=== PATIENT | female | born 1955 | race Caucasian/White ===

== ENCOUNTER → 2016-08-18 | Outpatient (CLI) | payer BC ==
[2016-08-18 10:14] LABS: Basophils % (A) 1 %; CH 31.9; CHCM 34.6; Eosinophils # (A) 0.2 k/uL (0-0.7); Eosinophils % (A) 3 %; HCT 42.5 % (34.0-46.0); HDW 3.02; HGB 14.2 gm/dL (11.4-16.0); Luc # (Auto) 0.14; Luc % (Auto) 3; Lymphocytes # (A) 1.5 k/uL (1.0-4.8); Lymphocytes % (A) 27 %; MCHC 33.4 g/dL (31.0-37.0); MCV 92.7 fL (80.0-100.0); Mean Platelet Volume 6.6; Monocytes # (A) 0.4 k/uL (0-1.0); Monocytes % (A) 7 %; Neutrophils # (A) 3.3 k/uL (1.3-7.7); Neutrophils % (A) 60 %; RBC 4.58 m/uL (3.80-5.40); RDW 13.8 % (11.5-15.5); WBC 5.5 k/uL (3.8-10.6); WBC (Perox) 5.45
[2016-08-18 10:21] LABS: ALT 59 U/L (9-52); AST 40 U/L (14-36); Alkaline Phosphatase 116 U/L (38-126); Anion Gap 9 mmol/L; Blood Urea Nitrogen 21 mg/dL (7-17); Calcium 9.6 mg/dL (8.4-10.2); Carbon Dioxide 28 mmol/L (22-30); Chloride 106 mmol/L (98-107); Cholesterol 189 mg/dL (<200); Glucose 103 mg/dL (74-99); HDL Cholesterol 84 mg/dL (40-60); Non-African American GFR(MDRD) >60 (>60 ml/min/1.73 sqM); Potassium 4.5 mmol/L (3.5-5.1); Sodium 143 mmol/L (137-145); Total Bilirubin 0.7 mg/dL (0.2-1.3); Total Protein 7.4 g/dL (6.3-8.2); Triglycerides 142 mg/dL (<150)
== END | disposition home or self-care (01) ==
LOC: LABWHC1 09:30
PROVIDERS: ATTEND Family Medicine
DX: E78.5 Hyperlipidemia, unspecified (principal)
CPT/HCPCS: 36415; 80053; 80061; 85025

== ENCOUNTER → 2016-10-19 | Outpatient (CLI) | payer BC ==
[2016-10-19 08:37] LABS: ALT 47 U/L (9-52); AST 39 U/L (14-36); Glucose 108 mg/dL (74-99)
[2016-10-19 10:55] LABS: Hemoglobin A1C 5.5 % (4.2-6.1)
--- NOTE | 2016-10-20 13:48 | MM ---
Reason for exam: screening (asymptomatic). Last mammogram was performed 4 years and 1 month ago. History: Patient is postmenopausal. Took hormonal contraceptives for 15 years beginning at age 20. Physical Findings: A clinical breast exam by your physician is recommended on an annual basis and results should be correlated with mammographic findings. MG Screening Mammo w CAD Bilateral CC and MLO view(s) were taken. Prior study comparison: September 27, 2012, bilateral digital screening mammo w/CAD. December 17, 2010, bilateral digital screening mammo w/CAD. The breast tissue is heterogeneously dense. This may lower the sensitivity of mammography. Finding: There are typically benign punctate, diffuse/scattered calcifications. No significant changes in finding since September 27, 2012 and December 17, 2010. ASSESSMENT: Benign, BI-RAD 2 RECOMMENDATION: Routine screening mammogram of both breasts in 1 year.
== END | disposition home or self-care (01) ==
LOC: RADMAMWWP 07:48
PROVIDERS: ATTEND Family Medicine
DX: Z12.31 Encounter for screening mammogram for malignant neoplasm of breast (principal); R74.8 Abnormal levels of other serum enzymes; R73.01 Impaired fasting glucose
CPT/HCPCS: 83036; 82947; 84450; 84460; 36415; G0202

== ENCOUNTER → 2018-05-28 | Outpatient (CLI) | payer BC ==
[2018-05-28 19:43] LABS: Hemoglobin A1C 5.7 % (4.0-6.0)
== END ==
LOC: LABWHC1 09:32
PROVIDERS: ATTEND Family Medicine
DX: E78.5 Hyperlipidemia, unspecified (principal); E66.9 Obesity, unspecified
CPT/HCPCS: 36415; 80061; 83036; 84443; 84450

== ENCOUNTER → 2019-07-20 | Outpatient (CLI) | payer BC ==
[2019-07-20 10:58] LABS: Basophils % (A) 1 %; Eosinophils # (A) 0.2 k/uL (0-0.7); Eosinophils % (A) 4 %; HCT 42.9 % (34.0-46.0); HGB 14.5 gm/dL (11.4-16.0); Lymphocytes # (A) 1.6 k/uL (1.0-4.8); Lymphocytes % (A) 33 %; MCH 30.3 pg (25.0-35.0); MCHC 33.7 g/dL (31.0-37.0); MCV 89.9 fL (80.0-100.0); Mean Platelet Volume 7.3; Monocytes # (A) 0.3 k/uL (0-1.0); Monocytes % (A) 5 %; Neutrophils # (A) 2.6 k/uL (1.3-7.7); Neutrophils % (A) 55 %; Platelet Count 255 k/uL (150-450); RBC 4.78 m/uL (3.80-5.40); RDW 13.1 % (11.5-15.5); WBC 4.8 k/uL (3.8-10.6)
[2019-07-20 15:34] LABS: African American GFR (CKD) 92.2 (60.0-200.0); Anion Gap 8.7 mmol/L (4.00-12.00); BUN/Creat Ratio 21.25 Ratio (12.00-20.00); Calcium 9.3 mg/dL (8.7-10.3); Carbon Dioxide 27.3 mmol/L (21.6-31.8); Chol/HDL Ratio 2.77; Non-African American GFR(CKD) 79.6 (60.0-200.0); Potassium 4.1 mmol/L (3.5-5.5)
[2019-07-20 16:46] LABS: Hemoglobin A1C 5.7 % (4.0-6.0)
== END | disposition home or self-care (01) ==
LOC: LABWHC1 10:01
PROVIDERS: ATTEND Family Medicine
DX: E78.5 Hyperlipidemia, unspecified (principal); E66.9 Obesity, unspecified
CPT/HCPCS: 36415; 80048; 80061; 83036; 84443; 84450; 85025

== ENCOUNTER → 2019-09-11 | Outpatient (CLI) | payer BC ==
--- NOTE | 2019-09-12 11:20 | MM ---
Reason for exam: screening (asymptomatic). Last mammogram was performed 2 years and 11 months ago. History: Patient is postmenopausal. Took hormonal contraceptives for 15 years beginning at age 20. Physical Findings: A clinical breast exam by your physician is recommended on an annual basis and results should be correlated with mammographic findings. MG Screening Mammo w CAD Bilateral CC and MLO view(s) were taken. Prior study comparison: October 19, 2016, bilateral MG screening mammo w CAD. September 27, 2012, bilateral digital screening mammo w/CAD. The breast tissue is heterogeneously dense. This may lower the sensitivity of mammography. Finding: There are typically benign round, linear calcifications in both breasts. There is no discrete abnormality. New finding and increase in number of calcifications since October 19, 2016 and September 27, 2012. ASSESSMENT: Benign, BI-RAD 2 RECOMMENDATION: Routine screening mammogram of both breasts in 1 year.
== END | disposition home or self-care (01) ==
LOC: RADMAMWWP 10:28
PROVIDERS: ATTEND Family Medicine
DX: Z12.31 Encounter for screening mammogram for malignant neoplasm of breast (principal)
CPT/HCPCS: 77067

== ENCOUNTER → 2020-09-12 | Outpatient (CLI) | payer BC ==
[2020-09-12 22:59] LABS: African American GFR (CKD) 79.4 (60.0-200.0); Anion Gap 12.5 mmol/L (4.00-12.00); BUN/Creat Ratio 23.33 Ratio (12.00-20.00); Calcium 9.8 mg/dL (8.7-10.3); Carbon Dioxide 25.5 mmol/L (21.6-31.8); Non-African American GFR(CKD) 68.5 (60.0-200.0); Potassium 4.4 mmol/L (3.5-5.5)
[2020-09-12 23:07] LABS: T4, Free (Free Thyroxine) 1.3 ng/dL (0.80-1.80)
[2020-09-13 06:48] LABS: Chol/HDL Ratio 2.42
== END | disposition home or self-care (01) ==
LOC: LABWHC1 12:43
PROVIDERS: ATTEND Family Medicine
DX: E78.5 Hyperlipidemia, unspecified (principal); E66.9 Obesity, unspecified
CPT/HCPCS: 36415; 80048; 80061; 84439; 84443; 84450

== ENCOUNTER → 2021-06-19 | Outpatient (CLI) | payer BC ==
--- NOTE | 2021-06-23 10:02 | MM ---
Reason for exam: screening (asymptomatic). Last mammogram was performed 1 year and 9 months ago. History: Patient is postmenopausal. Took hormonal contraceptives for 15 years beginning at age 20. Physical Findings: A clinical breast exam by your physician is recommended on an annual basis and results should be correlated with mammographic findings. MG 3D Screening Mammo W/Cad Bilateral CC and MLO view(s) were taken. Prior study comparison: September 11, 2019, bilateral MG screening mammo w CAD. October 19, 2016, bilateral MG screening mammo w CAD. The breast tissue is heterogeneously dense. This may lower the sensitivity of mammography. Benign secretory and oil cyst calcifications. No significant changes when compared with prior studies. ASSESSMENT: Benign, BI-RAD 2 RECOMMENDATION: Routine screening mammogram of both breasts in 1 year.
== END | disposition home or self-care (01) ==
LOC: RADMAMWWP 14:06
PROVIDERS: ATTEND Family Medicine
DX: Z12.31 Encounter for screening mammogram for malignant neoplasm of breast (principal); Z78.0 Asymptomatic menopausal state
CPT/HCPCS: 77063; 77067

== ENCOUNTER → 2022-02-07 | Outpatient (CLI) | payer BC ==
[2022-02-07 16:18] LABS: Basophils # (A) 0.04 X 10*3/uL (0.00-0.10); Basophils % (A) 0.7 %; Eosinophils # (A) 0.18 X 10*3/uL (0.04-0.35); Eosinophils % (A) 2.9 %; HCT 46.4 % (37.2-46.3); Immature Grans, Automated 0.8 %; Lymphocytes # (A) 1.95 X 10*3/uL (0.90-5.00); Lymphocytes % (A) 31.9 %; MCH 29.6 pg (27.0-32.0); MCHC 32.3 g/dL (32.0-37.0); MCV 91.7 fL (80.0-97.0); Mean Platelet Volume 10.4 fL (9.5-12.2); Monocytes # (A) 0.57 X 10*3/uL (0.20-1.00); Monocytes % (A) 9.3 %; NRBC Per 100 WBC 0 /100 WBCS (0.0-0.0); Neutrophils # (A) 3.32 X 10*3/uL (1.80-7.70); Neutrophils % (A) 54.4 %; Platelet Count 300 X 10*3/uL (140-440); RBC 5.06 X 10*6/uL (4.10-5.20); RDW 13.5 % (11.5-14.5); WBC 6.11 X 10*3/uL (4.50-10.00)
[2022-02-07 16:24] LABS: BUN/Creat Ratio 21.94 Ratio (12.00-20.00); Chol/HDL Ratio 2.29 Ratio; Globulin 2.8 g/dL (1.6-3.3); LDL Cholesterol,Calculated 76.7 mg/dL (0.0-131.0)
[2022-02-07 16:25] LABS: ALT 49 U/L (8-44); AST 46 U/L (13-35); African American GFR (CKD) 104.1 (60.0-200.0); Albumin 4.6 g/dL (3.8-4.9); Albumin/Globulin Ratio 1.64 (1.60-3.17); Alkaline Phosphatase 128 U/L (41-126); Blood Urea Nitrogen 15.6 mg/dL (9.0-27.0); Calcium 9.8 mg/dL (8.7-10.3); Carbon Dioxide 23.3 mmol/L (20.0-27.5); Chloride 103 mmol/L (96-109); Glucose 101 mg/dL (70-110); Non-African American GFR(CKD) 89.9 (60.0-200.0); Potassium 4.1 mmol/L (3.5-5.5); Sodium 139 mmol/L (135-145); Total Protein 7.4 g/dL (6.2-8.2)
== END | disposition home or self-care (01) ==
LOC: LABWHC1 11:23
PROVIDERS: ATTEND Family Medicine
DX: Z00.00 Encounter for general adult medical examination without abnormal findings (principal); E78.5 Hyperlipidemia, unspecified; E66.9 Obesity, unspecified
CPT/HCPCS: 36415; 80053; 80061; 82306; 84439; 84443; 85025

== ENCOUNTER → 2022-06-22 | Outpatient (CLI) | payer BC ==
--- NOTE | 2022-06-23 09:06 | MM ---
Reason for Exam: Screening (asymptomatic). Last screening mammogram was performed 12 month(s) ago. Patient History: Menarche at age 14. First Full-Term at age 29. Hysterectomy at age 53. Postmenopausal. Patient has history of breast feeding. Hormonal Contraceptives for 15 years from age 20 until age 37. Risk Values: Elena 5 year model risk: 1.8%. NCI Lifetime model risk: 7.2%. Prior Study Comparison: 05/14/1995 Screening Mammogram, Unknown. 05/07/2009 Bilateral Screening Mammogram, [facility]. 12/17/2010 Bilateral Screening Mammogram, [facility] 09/27/2012 Bilateral Screening Mammogram, [facility]. 10/19/2016 Bilateral Screening Mammogram, [facility]. 09/11/2019 Bilateral Screening Mammogram, [facility]. 06/19/2021 Bilateral Screening Mammogram, [facility]. Tissue Density: The breast tissue is heterogeneously dense. This may lower the sensitivity of mammography. Findings: Analyzed By CAD. There is no suspicious group of microcalcifications or new suspicious mass in either breast. Benign secretory and oil cyst calcifications bilaterally. No significant change from prior studies. Overall Assessment: Benign, BI-RAD 2 Management: Screening Mammogram of both breasts in 1 year. A clinical breast exam by your physician is recommended on an annual basis and results should be correlated with mammographic findings. Electronically signed and approved by: Ronald Carroll D.O.
== END | disposition home or self-care (01) ==
LOC: RADMAMWWP 13:52
PROVIDERS: ATTEND Family Medicine
DX: Z12.31 Encounter for screening mammogram for malignant neoplasm of breast (principal); Z78.0 Asymptomatic menopausal state
CPT/HCPCS: 77067

== ENCOUNTER 2022-06-30 08:09 | Day surgery (SDC) | payer BC ==
[2022-06-29 08:24] VITALS: BMI 39.0
[~2022-06-30 08:09] MED LIST: LACTATED RINGERS 1,000 ML IV SCH; LIDOCAINE 1% (10MG/ML) FOR IV START INTRADERMA PRN
[2022-06-30 08:36] VITALS: TEMP 98
[2022-06-30] MEDS ORDERED: LIDOCAINE 2% INJ 20 MG/ML (2 ML VIAL) ONE (08:59)
[2022-06-30] MEDS ORDERED: PROPOFOL 10 MG/ML 20 ML VIAL IV ONE (08:59)
--- NOTE | 2022-06-30 09:03 | P.GSHP ---
History of Present Illness H&P Date: 06/30/22 Chief Complaint: Colon cancer screening [id number] female here today for colonoscopy. Last colonoscopy 14 years ago. No bowel complaints. No family history of colon cancer. Past Medical History Past Medical History: GERD/Reflux, Hyperlipidemia, Hypertension, Skin Disorder Additional Past Medical History / Comment(s): hx of diverticulitis., hemorrhoids., states hernia above umbilicus., back and hip pain, psoriasis- receives steroid injections q 6 months. History of Any Multi-Drug Resistant Organisms: None Reported Past Surgical History: Hysterectomy, Tubal Ligation Additional Past Surgical History / Comment(s): colonoscopy, egd. Past Anesthesia/Blood Transfusion Reactions: No Reported Reaction Past Psychological History: No Psychological Hx Reported Smoking Status: Never smoker Past Alcohol Use History: Rare Past Drug Use History: None Reported - Past Family History Mother Family Medical History: No Reported History Medications and Allergies Home Medications Medication Instructions Recorded Confirmed Type Atorvastatin [Lipitor] 10 mg PO DAILY 06/29/22 06/30/22 History Cholecalciferol [Vitamin D3 (25 100 mcg PO DAILY 06/29/22 06/30/22 History Mcg = 1000 Iu)] Naproxen Sodium [Aleve] 220 mg PO DIRECTED PRN 06/29/22 06/30/22 History Pantoprazole [Protonix] 40 mg PO DAILY 06/29/22 06/30/22 History amLODIPine [Norvasc] 5 mg PO DAILY 06/29/22 06/30/22 History Allergies Allergy/AdvReac Type Severity Reaction Status Date / Time No Known Allergies Allergy Verified 06/30/22 08:36 Surgical - Exam Vital Signs Temp Pulse Resp BP Pulse Ox 98.0 F 71 16 160/70 97 06/30/22 08:35 06/30/22 08:35 06/30/22 08:35 06/30/22 08:35 06/30/22 08:35 Physical exam: General: Well-developed, well-nourished HEENT: Normocephalic, sclerae nonicteric Abdomen: Nontender, nondistended Extremities: No edema Neuro: Alert and oriented Assessment and Plan (1) Colon cancer screening Narrative/Plan: Will proceed with colonoscopy Current Visit: Yes Status: Acute Code(s): Z12.11 - ENCOUNTER FOR SCREENING FOR MALIGNANT NEOPLASM OF COLON SNOMED Code(s): 453319250
--- NOTE | 2022-06-30 09:19 | P.PCN ---
Date of Procedure: 06/30/22 Procedure(s) Performed: PREOPERATIVE DIAGNOSIS: Colon cancer screening POSTOPERATIVE DIAGNOSIS: Diverticulosis, small rectal polyp PROCEDURE: Colonoscopy with snare polypectomy ANESTHESIA: MAC SURGEON: Gaston Ortega M.D. SPECIMENS: Polyp ENDOSCOPIC PROCEDURE: The patient was placed on the endoscopy table in the left decubitus position. The Olympus colonoscope was inserted into the anus and passed under direct visualization to the base of the cecum. The appendiceal orifice was visualized. From that point the scope was slowly withdrawn inspecting all surfaces carefully. There were no neoplastic inflammatory or polypoid lesions throughout the cecum, ascending, transverse, descending, and sigmoid colon. In the distal rectum there was noted to be a small polyp that was removed using the snare with cautery technique. The patient had mild scattered diverticulosis. Digital rectal examination was normal. The patient was taken to the recovery room in stable condition per anesthesia guidelines. RECOMMENDATIONS: Await biopsy results.
[2022-06-30] MEDS ORDERED: IV FLUID CONTINUATION 600 ML IV ONE (09:25)
[2022-06-30 09:28] VITALS: RESP 18
[2022-06-30 09:42] VITALS: BP 110/55; PULSE 67
== END 2022-06-30 10:11 | disposition home or self-care (01) ==
LOC: ORWHC2ENDO 08:09
PROVIDERS: ATTEND Surgery
DX: Z12.11 Encounter for screening for malignant neoplasm of colon (principal); D12.8 Benign neoplasm of rectum; I10 Essential (primary) hypertension; E78.5 Hyperlipidemia, unspecified; K21.9 Gastro-esophageal reflux disease without esophagitis; Z87.19 Personal history of other diseases of the digestive system; Z98.51 Tubal ligation status; Z86.59 Personal history of other mental and behavioral disorders; Z79.899 Other long term (current) drug therapy
CPT/HCPCS: 88305; 45385; J2704; J2001

== ENCOUNTER → 2023-11-10 | Outpatient (CLI) | payer MEDICARE ==
--- NOTE | 2023-11-11 00:38 | MM ---
Reason for Exam: Screening (asymptomatic). Last mammogram was performed 1 year(s) and 5 month(s) ago. Patient History: Menarche at age 14. First Full-Term at age 29. Hysterectomy at age 53. Postmenopausal. Patient has history of breast feeding. Hormonal Contraceptives for 15 years from age 20 until age 37. Risk Values: Elena 5 year model risk: 1.9%. NCI Lifetime model risk: 6.7%. Prior Study Comparison: 09/11/2019 Bilateral Screening Mammogram, [facility]. 06/19/2021 Bilateral Screening Mammogram, [facility]. 06/22/2022 Bilateral MG screening mammo w CAD, [facility]. Tissue Density: The breasts are heterogeneously dense, which may obscure small masses. Findings: Analyzed By CAD. The pattern is symmetrical. Benign linear and spherical calcifications are present bilaterally. No suspicious groups of microcalcifications, spiculated or lobular masses, architectural distortion or other secondary signs of malignancy are mammographically apparent. Overall Assessment: Benign, BI-RAD 2 Management: Screening Mammogram of both breasts in 1 year. A negative mammogram report should not preclude additional follow up of suspicious palpable abnormalities. Patient should continue monthly self breast exam. A clinical breast exam by your physician is recommended on an annual basis and results should be correlated with mammographic findings. Electronically signed and approved by: Rogers Cobb D.O. Radiologis
== END | disposition home or self-care (01) ==
LOC: RADMAMWWP 13:34
PROVIDERS: ATTEND Family Medicine
DX: Z12.31 Encounter for screening mammogram for malignant neoplasm of breast (principal); Z78.0 Asymptomatic menopausal state
CPT/HCPCS: 77067

== ENCOUNTER → 2024-05-03 | Outpatient (CLI) | payer MEDICARE ==
[2024-05-03 15:11] LABS: Basophils # (A) 0.03 X 10*3/uL (0.00-0.10); Basophils % (A) 0.6 %; Eosinophils # (A) 0.15 X 10*3/uL (0.04-0.35); Eosinophils % (A) 3.1 %; HCT 43.3 % (37.2-46.3); HGB 14.5 g/dL (12.0-15.0); Lymphocytes # (A) 1.71 X 10*3/uL (0.90-5.00); MCH 30.4 pg (27.0-32.0); MCHC 33.5 g/dL (32.0-37.0); MCV 90.8 FL (80.0-97.0); Mean Platelet Volume 10.1 FL (9.5-12.2); Monocytes # (A) 0.48 X 10*3/uL (0.20-1.00); Monocytes % (A) 9.8 %; NRBC Per 100 WBC 0 X 10*3/uL (0.00-0.01); Neutrophils # (A) 2.51 X 10*3/uL (1.80-7.70); Neutrophils % (A) 51.3 %; Platelet Count 245 X 10*3/uL (140-440); RBC 4.77 X 10*6/uL (4.10-5.20); WBC 4.89 X 10*3/uL (4.50-10.00)
[2024-05-03 15:22] LABS: ALT 23 U/L (8-44); AST 30 U/L (13-35); Albumin 4.3 g/dL (3.8-4.9); Albumin/Globulin Ratio 1.79 Ratio (1.60-3.17); Alkaline Phosphatase 120 U/L (41-126); Blood Urea Nitrogen 18.2 mg/dL (9.0-27.0); Calcium 9.5 mg/dL (8.7-10.3); Carbon Dioxide 23.5 mmol/L (21.6-31.8); Chloride 103 mmol/L (96-109); Chol/HDL Ratio 2.31 Ratio; Globulin 2.4 g/dL (1.6-3.3); Glucose 99 mg/dL (70-110); LDL Cholesterol,Calculated 87.3 mg/dL (0.0-131.0); Potassium 4.5 mmol/L (3.5-5.5); Sodium 140 mmol/L (135-145); Total Bilirubin 0.7 mg/dL (0.3-1.2); Total Protein 6.7 g/dL (6.2-8.2); VLDL Calculation 19.86 mg/dL (5.00-40.00)
== END | disposition home or self-care (01) ==
LOC: LABWHC1 10:27
PROVIDERS: ATTEND Family Medicine
DX: I10 Essential (primary) hypertension (principal); L65.9 Nonscarring hair loss, unspecified
CPT/HCPCS: 36415; 80053; 80061; 84443; 85025; 86038

== ENCOUNTER → 2024-11-15 | Outpatient (CLI) | payer MEDICARE ==
--- NOTE | 2024-11-16 11:05 | CA ---
Transthoracic Echo Report Name: Samira Cummins Age: 69 Gender: F : 1955 Exam Date: 11/15/2024 16:50 Exam Location: [facility] Ht (in): 60 Wt (lb): 192 Ordering Physician: Rogers Hanson DO Attending/Referring Phys: Rogers Hanson DO [employer] Bita Stubbs RDCS Procedure CPT: Indications: R01.1 CARDIAC MURMUR, UNSPECIFIED Cardiac Hx: Technical Quality: Good Contrast 1: Total Dose (mL): Contrast 2: Total Dose (mL): MEASUREMENTS (Male / Female) Normal Values 2D ECHO LV Diastolic Diameter PLAX 3.8 cm 4.2 - 5.9 / 3.9 - 5.3 cm LV Systolic Diameter PLAX 2.7 cm IVS Diastolic Thickness 0.9 cm 0.6 - 1.0 / 0.6 - 0.9 cm LVPW Diastolic Thickness 1.1 cm 0.6 - 1.0 / 0.6 - 0.9 cm LV Relative Wall Thickness 0.5 RV Internal Dim ED PLAX 3.0 cm LA Systolic Diameter LX 3.0 cm 3.0 - 4.0 / 2.7 - 3.8 cm LV Diastolic Volume MOD 4C 74.2 cm??? LV Systolic Volume MOD 4C 33.7 cm??? LV Ejection Fraction MOD 4C 54.5 % LV Cardiac Index MOD 4C 1275.3 cm???/min???m??? LV Diastolic Length 4C 8.4 cm LV Systolic Length 4C 6.8 cm LV Diastolic Volume MOD 2C 63.0 cm??? LV Systolic Volume MOD 2C 25.2 cm??? LV Ejection Fraction MOD 2C 60.0 % LV Cardiac Index MOD 2C 1192.0 cm???/min???m??? LV Diastolic Length 2C 8.1 cm LV Systolic Length 2C 6.2 cm M-MODE Aortic Root Diameter MM 2.6 cm DOPPLER AV Peak Velocity 229.5 cm/s AV Peak Gradient 21.1 mmHg AV Mean Velocity 148.9 cm/s AV Mean Gradient 10.3 mmHg AV Velocity Time Integral 48.1 cm LVOT Peak Velocity 146.5 cm/s LVOT Peak Gradient 8.6 mmHg LVOT Velocity Time Integral 30.0 cm Mitral E Point Velocity 96.5 cm/s Mitral A Point Velocity 123.1 cm/s Mitral E to A Ratio 0.8 MV Deceleration Time 209.1 ms MV E' Velocity 8.0 cm/s Mitral E to MV E' Ratio 12.0 TR Peak Velocity 250.0 cm/s TR Peak Gradient 25.0 mmHg Right Ventricular Systolic Press 35.0 mmHg FINDINGS Left Ventricle Left ventricular ejection fraction is estimated at 55-60 %. Small left ventricular cavity. Mildly increased posterior wall thickness. Normal left ventricular wall motion. Right Ventricle Normal right ventricular size. Mild pulmonary hypertension. Right Atrium Normal right atrial size. No right atrial thrombus or mass seen. Left Atrium Normal left atrial size. No left atrial thrombus or mass present. Mitral Valve Structurally normal mitral valve. Trace mitral regurgitation. Aortic Valve Trileaflet aortic valve. Aortic valve sclerosis. Mild aortic stenosis with a peak gradient of 21 mmHg and a mean gradient of 10 mmHg. Tricuspid Valve Structurally normal tricuspid valve. Mild tricuspid regurgitation. Pulmonic Valve Structurally normal pulmonic valve. Trace pulmonic regurgitation. Pericardium No pericardial effusion. Aorta Normal size aortic root and proximal ascending aorta. CONCLUSIONS Normal LV systolic function Aortic sclerosis with mild stenosis Previewed by: Dr. Aj Castañeda MD (Electronically Signed) Final Date: 16 November 2024 11:04
== END | disposition home or self-care (01) ==
LOC: RADECHMAIN 16:44
PROVIDERS: ATTEND Family Medicine
DX: R01.1 Cardiac murmur, unspecified (principal); I70.0 Atherosclerosis of aorta; I07.1 Rheumatic tricuspid insufficiency; I37.1 Nonrheumatic pulmonary valve insufficiency
CPT/HCPCS: 93306

== ENCOUNTER → 2024-11-28 | Outpatient (CLI) | payer MEDICARE ==
--- NOTE | 2024-11-28 14:02 | MM ---
Reason for Exam: Screening (asymptomatic). Last screening mammogram was performed 12 month(s) ago. Patient History: Menarche at age 14. First Full-Term at age 29. Hysterectomy at age 53. Postmenopausal. Patient has history of breast feeding. Hormonal Contraceptives for 15 years from age 20 until age 37. Risk Values: Elena 5 year model risk: 1.9%. NCI Lifetime model risk: 6.4%. Prior Study Comparison: 06/19/2021 Bilateral Screening Mammogram, [facility]. 06/22/2022 Bilateral MG screening mammo w CAD, [facility]. 11/10/2023 Bilateral MG screening mammo w CAD, [facility]. Tissue Density: The breasts are heterogeneously dense, which may obscure small masses. Findings: Analyzed By CAD. There is no suspicious group of microcalcifications or new suspicious mass in either breast. Overall Assessment: Benign, BI-RAD 2 Management: Screening Mammogram of both breasts in 1 year. . Patient should continue monthly self-breast exams. A clinical breast exam by your physician is recommended on an annual basis. This exam should not preclude additional follow-up of suspicious palpable abnormalities. Note on Elena scores and lifetime risk: 1. A Elena score greater than 3% is considered moderate risk. If this is the case, consider specialist referral to assess eligibility for a risk reducing agent. 2. If overall lifetime risk for the development of breast cancer is 20% or higher, the patient may qualify for future screening with alternating mammogram and breast MRI. [facility], , 11/28/2024 1:59 PM. Electronically signed and approved by: Slade Chong M.D. Radiologis
== END | disposition home or self-care (01) ==
LOC: RADMAMWWP 13:43
PROVIDERS: ATTEND Family Medicine
DX: Z12.31 Encounter for screening mammogram for malignant neoplasm of breast (principal); R92.333 Mammographic heterogeneous density, bilateral breasts; Z78.0 Asymptomatic menopausal state; Z92.0 Personal history of contraception
CPT/HCPCS: 77067